=== PATIENT | male | born 1965 | race Caucasian/White ===

== ENCOUNTER 2023-05-16 11:48 | Emergency (ER) | payer OTHER, SELFPAY ==
[2023-05-16 11:52] VITALS: BP 160/90
[2023-05-16 12:29] VITALS: BMI 37.2
--- NOTE | 2023-05-16 13:48 | ED.SKININJ ---
HPI-Injury
General
Chief Complaint: Eye Problems
Source: patient
Exam Limitations: none
Time Seen by Provider: 05/16/23 13:08
Nursing documentation reviewed up to this point in time: agreed with
Travel History
Have you had any contact with someone who has COVID-19?: No
Do you have any symptoms of coronavirus? Fever > 100 degrees, chills, cough, shortness of breath, sore throat, loss of taste or smell, muscle aches, or headache?: No
History of Present Illness-Injury
Initial Injury comments:
57-year-old male with no past medical history, contact lens wearer, states he felt slight scratchy feeling in the left eye 2 weeks ago which persisted as a 'little irritation off and on since.' He wears contact lenses that are supposed to be
changed biweekly but he wears them for a month. [facility] as his eye was tearing and sensitive to the light. They dilated his pupil and did a fluorescein stain and sent him here for evaluation. He denies headache. Denies
change in vision.
Past History
Past History
ED Past Medical History: None
ED Past Surgical History: None
Social History
Tobacco: Non-smoker
Alcohol: Occasional
Personal:
Living: with family
Employment: Employed
Review of Systems
Review of Systems
Allergies reviewed?: Yes
All Other Systems: ROS reviewed and negative except as documented in HPI and ROS
Constitutional: Denies fever
EENT: Reports other (Irritation, foreign body sensation left eye)
ABD/GI: Denies nausea
Neurological: Denies headache
Phy Exam
Physical Exam
Physical Exam:
PHYSICAL EXAMINATION:
General: no apparent distress, not acutely ill
Neuro: alert and oriented.
Psychiatric: well kept. interactive and cooperative
Musculoskeletal: Moves with ease
Skin: Warm, pink.
Eye Exam
Eye Exam: PERRL (Right pupil 3 mm, briskly reactive, left pupil dilated from mydriatic at ), conjunctiva normal, globe normal and other (Lid everted, no foreign body. Fluorescein stain reveals no corneal abrasion. There is a pinpoint corneal
ulcer between 6 and 7:00 )
Course
Orders/Labs/Results
Orders:
Orders
05/16/23 12:15
Visual Acuity- Treatment ONCE
05/16/23 14:05
Tetracaine HCl [Tetracaine 0.5% Ophthalmic Solution] 1 drop .ROUTE .STK-MED ONE
Vital Signs
Initial and Last Documented VS:
Initial Vital Signs
Pulse Resp BP Pulse Ox
65 18 160/90 98
05/16/23 11:52 05/16/23 11:52 05/16/23 11:52 05/16/23 11:52
Last Documented Vital Signs
Pulse Resp BP Pulse Ox
65 18 160/90 98
05/16/23 11:52 05/16/23 11:52 05/16/23 11:52 05/16/23 11:52
MDM/Problems Addressed
Differential Diagnosis Includes:
Foreign body, corneal abrasion, corneal ulcer
MDM/Problems Addressed:
57-year-old male with no past medical history, contact lens wearer, states he felt slight scratchy feeling in the left eye 2 weeks ago which persisted as a 'little irritation off and on since.' He wears contact lenses that are supposed to be
changed biweekly but he wears them for a month. [facility] as his eye was tearing and sensitive to the light. They dilated his pupil and did a fluorescein stain and sent him here for evaluation. He denies headache. Denies
change in vision.
Afebrile, NAD
Good relief of pain with topical anesthetic.
Eye exam reveals a pinpoint corneal ulcer between 6 and 7:00, no corneal abrasion, no foreign body
Plan: Antibiotic eyedrops, ibuprofen, cool compress, rest the eye in a darkened room. Patient sees Dr. Woodward he and he will see him tomorrow in his office.
*Critical Care Note
Total Time (30-74mins, 75-104mins- exclusive of procedures): Not Applicable
ED Attending Note
-
Portions of this chart may have been created with voice recognition software.� Occasional wrong word or��sound alike� substitutions may have occurred due to the inherent limitations of voice recognition software.
Discharge Plan
Departure
Patient Disposition: Home (Routine Discharge)
Date of Disposition: 05/16/23
Time of Disposition: 13:51
Patient with high blood pressure during this ER visit?: Yes
Condition: Good
Discharge Problem:
Corneal ulcer
Instructions: Corneal Ulcer ED
Prescriptions:
New
ciprofloxacin HCl 0.3 % ointment
1 applic ophthalmic (eye) TID Qty: 3.5 0RF
No Action
amoxicillin-pot clavulanate 1 TABLET tablet
1 tab PO Q12 Qty: 20 0RF
Referrals:
Gt Alexandre, [Family Provider] -
Kai Avalos MD [Active] - Tomorrow
Activity Restrictions/Additional Instructions:
As we discussed, I sent a prescription to your pharmacy for antibiotic ointment to apply 3 times a day
See Dr. Avalos tomorrow for follow-up.
Ibuprofen 600 mg, with food, every 6 hours as needed for pain.
No contact lens wearing until further instructed by Dr. Avalos.
Interventions
Interventions:
*Risk Screen - Suicide Last Done: 05/16/23 12:30
*General Assessment Last Done: 05/16/23 11:52
*Neglect/Abuse Screening Last Done: 05/16/23 12:30
*ED COVID-19 Vaccine History Last Done: 05/16/23 11:52
*Nursing Disposition Last Done: 05/16/23 14:07
Discharge Date and Time
Discharge Date/Time: 05/16/23 14:08
== END 2023-05-16 14:08 | disposition home or self-care (01) ==
LOC: EMR 11:48
PROVIDERS: EMERGENCY PHYSICIAN Emergency Medicine; FAMILY PHYSICIAN Family Medicine
DX: H16.002 Unspecified corneal ulcer, left eye (principal); R03.0 Elevated blood-pressure reading, without diagnosis of hypertension
CPT/HCPCS: 99283